=== PATIENT | female | born 1930 | race Hispanic/Latino ===

== ENCOUNTER 2018-10-22 13:46 | Emergency (ER) | payer OTHER, MEDICARE ==
[~2018-10-22 13:46] MED LIST: ACET325C3 PO; BISA10SU11 PR; BRIM5DRO OU; CITA10TA7 PO; DOCU60SY6 PO; FERS325 PO; FURO-152 PO; HYDR-3965 PO; LATA1OIL OU; MULT-40 PO; SODI100037 PO; VIT B12 IM; [UNRECOGNIZED DRUG - OTHER] PO
[2018-10-22 14:12] LABS: EOSINOPHILS % (AUTO) 1.9 % (0.0-8.0); HEMATOCRIT 37.7 % (36-48); LYMPHOCYTES % (AUTO) 20.5 % (21.0-51.0); MEAN CORPUSCULAR HEMOGLOBIN 30.8 pg (27.0-33.0); MEAN CORPUSCULAR HGB CONC 33.9 g/dL (32.0-36.0); MEAN CORPUSCULAR VOLUME 90.9 fL (79-99); MONOCYTES % (AUTO) 5.3 % (3.0-13.0); NEUTROPHILS % (AUTO) 71.3 % (40.0-77.0); PLATELET COUNT (AUTO) 238 K/uL (130-400); RED BLOOD CELL COUNT(AUTO) 4.14 MIL/uL (4.00-5.50); RED CELL DISTRIBUTION WIDTH 14.8 % (11.0-15.5); WHITE BLOOD COUNT (AUTO) 6.9 K/uL (4.8-10.8)
[2018-10-22 14:19] LABS: CREATININE 0.8 mg/dL (0.5-1.5)
[2018-10-22 14:23] LABS: ALBUMIN 3.6 g/dL (3.5-5.0); BILIRUBIN,TOTAL 0.3 mg/dL (0.2-1.0); TOTAL PROTEIN, SERUM 7.7 g/dL (6.0-8.3)
[2018-10-22 14:41] LABS: APPEARANCE,URINE Clear (CLEAR); BILIRUBIN,URINE Negative (NEGATIVE); COLOR,URINE Yellow (YELLOW); GLUCOSE, URINE (UA) Negative (NEGATIVE); KETONES,URINE Trace mg/dL (NEGATIVE); LEUKOCYTE ESTERASE ,URINE Negative (NEGATIVE); NITRATE,URINE Negative (NEGATIVE); OCCULT BLOOD,URINE Negative (NEGATIVE); PROTEIN,URINE Negative (NEGATIVE)
[2018-10-22] MEDS ORDERED: SODIUM CHLORIDE 0.9% 250 ML IV ONE (14:41)
== END 2018-10-22 16:51 | disposition home or self-care (01) ==
LOC: EDH 13:46
DX: R55 Syncope and collapse (principal); T40.695A Adverse effect of other narcotics, initial encounter; Y92.89 Other specified places as the place of occurrence of the external cause; F32.9 Major depressive disorder, single episode, unspecified; F03.90 Unspecified dementia, unspecified severity, without behavioral disturbance, psychotic disturbance, mood disturbance, and anxiety; J44.9 Chronic obstructive pulmonary disease, unspecified; I10 Essential (primary) hypertension; E03.9 Hypothyroidism, unspecified; M81.0 Age-related osteoporosis without current pathological fracture; Z96.649 Presence of unspecified artificial hip joint
CPT/HCPCS: 36415; 80053; 81003; 84484; 85025; 93005; 96360; 99285; J7030